=== PATIENT | male | born 1945 | race Caucasian/White ===

== ENCOUNTER 2017-07-23 21:00 | Emergency (ER) | payer MEDICARE, OTHER ==
[2017-07-23 21:29] LABS: BILIRUBIN,URINE NEGATIVE (NEGATIVE)
[2017-07-23] MEDS ORDERED: SODIUM CHLORIDE 0.9% 1,000 ML IV ONE (21:37)
[2017-07-23 21:44] LABS: UA w/ MICROSCOPIC CHARGE YES; UR CULTURE IF IND INDICATED; WBC,URINE >25 /HPF (0-3)
[2017-07-23 21:52] LABS: BASOPHILS # (AUTO) 0.1 10^3/uL (0.0-0.1); BASOPHILS % (AUTO) 0.6 %; EOSINOPHILS # (AUTO) 0.1 10^3/uL (0.0-0.7); EOSINOPHILS % (AUTO) 0.7 %; HCT - HEMATOCRIT 46.4 % (42.0-52.0); HGB - HEMOGLOBIN 15.3 g/dL (14.0-18.0); LYMPHOCYTES # (AUTO) 0.6 10^3/uL (1.5-3.5); LYMPHOCYTES % (AUTO) 3.5 %; MEAN CORPUSCULAR HEMOGLOBIN 28.9 pg (27.0-31.0); MEAN CORPUSCULAR HGB CONC 33.1 g/dL (32.0-36.0); MEAN CORPUSCULAR VOLUME 87.2 fL (80.0-94.0); MEAN PLATELET VOLUME 7.4 fL (7.4-11.4); MONOCYTES % (AUTO) 5.9 %; NEUTROPHILS # (AUTO) 14.6 10^3/uL (1.5-6.6); NEUTROPHILS % (AUTO) 89.3 %; NUCLEATED RED BLOOD CELLS AUTO 0.1 /100WBC; RED BLOOD COUNT 5.32 10^6/uL (4.70-6.10); RED CELL DISTRIBUTION WIDTH 14.3 % (12.0-15.0); UNCORRECTED WHITE BLOOD COUNT 16.3 x10^3/uL; WHITE BLOOD COUNT 16.3 x10^3/uL (4.8-10.8)
[2017-07-23] MEDS ORDERED: ONDANSETRON 4 MG/2 ML VIAL IVP STA (22:02)
[2017-07-23 22:03] LABS: ALBUMIN/GLOBULIN RATIO 1.5 (1.0-2.2); BILIRUBIN,TOTAL 0.8 mg/dL (0.2-1.0); CALCIUM 9.1 mg/dL (8.5-10.3); CREATININE 1.7 mg/dL (0.6-1.2); POTASSIUM 3.8 mmol/L (3.5-5.0); TOTAL PROTEIN 7.2 g/dL (6.7-8.2)
[2017-07-23] MEDS ORDERED: SULFAMETH/TRIMETH DS 800/160 MG TABLET PO STA (22:04)
[2017-07-23] MEDS ORDERED: SULFAMETH/TRIMETH DS 800/160 MG TABLET PO ONE (22:17)
[2017-07-23] MEDS ORDERED: ONDANSETRON 4 MG/2 ML VIAL ONE ×2 (22:17→22:18)
[2017-07-23] MEDS ORDERED: ONDANSETRON ODT 4 MG Prepack 2 TL PRN (23:01)
--- NOTE | 2017-07-23 23:04 | ED Physician Documentation ---
PD HPI MALE - Stated complaint Stated Complaint: MALE - Chief complaint Chief Complaint: Abd Pain - History obtained from History obtained from: Patient (pt states that earlier today he started to have burning with urination. he then states that he woke from a nap at approx 1600 and had worsening symptoms, chills, some nausea but no vomiting, no fevers, no bowel sx, no back pain. states that he had a UTi approx 3 years ago, no other sx.) Review of Systems Constitutional: reports: Chills, Fatigue. denies: Fever Cardiac: denies: Chest pain / pressure, Palpitations Respiratory: denies: Dyspnea, Cough GI: reports: Nausea. denies: Abdominal Pain, Vomiting, Constipation, Diarrhea : reports: Dysuria, Frequency. denies: Unable to Void, Incontinent, Hematuria , Discharge Skin: denies: Rash, Lesions Musculoskeletal: denies: Back pain, Joint pain Neurologic: denies: Headache, LOC PD PAST MEDICAL HISTORY - Past Medical History Past Medical History: Yes Cardiovascular: Hypertension, High cholesterol, Coronary artery disease, [place] Respiratory: Asthma, Sleep apnea, CPAP use Neuro: Dementia, Tremors Endocrine/Autoimmune: Type 2 diabetes GI: Chronic diarrhea, Chronic constipation, Other : Benign prostate hypertrophy, Retention HEENT: Glaucoma, Chronic hearing loss, Dental implants Psych: Depression Musculoskeletal: Fibromyalgia, Gout, Chronic back pain Derm: Other - Past Surgical History General: Colonoscopy Cardiovascular: Coronary stent, Cardiac catheterization HEENT: Cataracts, Detached retina repair Derm: Skin cancer surgery - Present Medications Home Medications: Ambulatory Orders Medication Instructions Recorded Confirmed Phenazopyridine [Pyridium] 100 mg PO TID #6 tablet 07/23/17 Sulfamethox/Trimeth 800/160 1 each PO BID #6 tablet 07/23/17 [Bactrim Ds 800/160] - Allergies Allergies/Adverse Reactions: Allergies Allergy/AdvReac Type Severity Reaction Status Date / Time Penicillins Allergy Rash Verified 07/23/17 21:18 - Social History Does the pt smoke?: No Smoking Status: Former smoker Does the pt drink ETOH?: Yes Substance Use and Type: Marijuana PD ED PE NORMAL - Vitals Vital signs reviewed: Yes - General General: Alert and oriented X 3, No acute distress, Well developed/nourished - HEENT HEENT: Moist mucous membranes - Cardiac Cardiac: No murmur. No: RRR (tachycardic but regular) - Respiratory Respiratory: No respiratory distress - Abdomen Abdomen: Normal bowel sounds, Soft, Non tender, Non distended - Back Back: No CVA TTP - Derm Derm: Normal color, No rash - Extremities Extremities: No edema, No calf tenderness / cord - Neuro Neuro: Alert and oriented X 3, Normal speech Eye Opening: Spontaneous Motor: Obeys Commands Verbal: Oriented GCS Score: 15 - Psych Psych: Normal mood, Normal affect Results - Vitals Vitals: Vital Signs - 24 hr 07/23/17 21:18 Temperature 36.9 C Heart Rate 124 H Respiratory 18 Rate Blood Pressure 135/85 H O2 Saturation 98 Oxygen O2 Source Room air - Labs Labs: Laboratory Tests 07/23/17 07/23/17 07/23/17 21:25 21:30 21:30 WBC 16.3 H RBC 5.32 Hgb 15.3 Hct 46.4 MCV 87.2 MCH 28.9 MCHC 33.1 RDW 14.3 Plt Count 220 MPV 7.4 Neut # 14.6 H Lymph # 0.6 L [place] # 1.0 Eos # 0.1 Baso # 0.1 Absolute Nucleated RBC 0.02 Nucleated RBC % 0.1 Sodium 137 Potassium 3.8 Chloride 101 Carbon Dioxide 22 Anion Gap 14.0 H BUN 29 H Creatinine 1.7 H Estimated GFR (MDRD) 40 L Glucose 181 H Calcium 9.1 Total Bilirubin 0.8 AST 22 ALT 22 Alkaline Phosphatase 73 Total Protein 7.2 Albumin 4.3 Globulin 2.9 Albumin/Globulin Ratio 1.5 Lipase 33 Urine Color YELLOW Urine Clarity HAZY Urine pH 6.0 Ur Specific Orient 1.020 Urine Protein NEGATIVE Urine Glucose (UA) NEGATIVE Urine Ketones NEGATIVE Urine Occult Blood MODERATE H Urine Nitrite NEGATIVE Urine Bilirubin NEGATIVE Urine Urobilinogen 0.2 (NORMAL) Ur Leukocyte Esterase MODERATE H Urine RBC TNTC H Urine WBC >25 H Ur Squamous Epith Cells NONE SEEN Urine Bacteria Moderate H Ur Microscopic Review INDICATED Urine Culture Comments INDICATED PD MEDICAL DECISION MAKING - ED course Complexity details: d/w patient ED course: pt with UA and sx that are C/W a UTI. He is tachycardic and has elevated WBC count from the UTI but not hypotensive. Pt given fluids in the ER and tolerated PO ABX after zofran. He states that he started to feel better after the fluids. He has a non-surgical ABD on my exam. Has no CVA pain so pyelo is less likely. he was given bactrim because he is allergic to PCN and cipro. 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 we was given a pre-pack of zofran from the ER to cover him for this evening. he was given return precautions. and expressed agreement with going home. Departure - Departure Disposition: 01 Home, Self Care Clinical Impression: UTI (urinary tract infection) Condition: Good Instructions: ED UTI Cystitis Male Follow-Up: DIONNE GARCIA [Primary Care Provider] - Prescriptions: Phenazopyridine [Pyridium] 100 mg PO TID #6 tablet Sulfamethox/Trimeth 800/160 [Bactrim Ds 800/160] 1 each PO BID #6 tablet Comments: take the medications as directed. Follow up with your primary care provider. Fill your Rx tomorrow morning. Return to the ER for any new symptoms, worsening symptoms, inability to tolerate your medications or any other concerning symptoms.
[2017-07-23] MEDS ORDERED: ONDANSETRON ODT 4 MG Prepack 2 TL ONE (23:20)
[2017-07-23] MEDS ORDERED: ACETAMINOPHEN 500 MG TABLET PO STA (23:52)
[2017-07-23] MEDS ORDERED: ACETAMINOPHEN 500 MG TABLET PO ONE (23:59)
[2017-07-24 00:39] VITALS: BP 118/78
== END 2017-07-24 00:54 | disposition home or self-care (01) ==
LOC: ED 21:00
DX: N39.0 Urinary tract infection, site not specified (principal); I10 Essential (primary) hypertension; I25.10 Atherosclerotic heart disease of native coronary artery without angina pectoris; I25.2 Old myocardial infarction; J45.909 Unspecified asthma, uncomplicated; E78.00 Pure hypercholesterolemia, unspecified; G47.30 Sleep apnea, unspecified; F03.90 Unspecified dementia, unspecified severity, without behavioral disturbance, psychotic disturbance, mood disturbance, and anxiety; E11.9 Type 2 diabetes mellitus without complications; N40.0 Benign prostatic hyperplasia without lower urinary tract symptoms; M79.7 Fibromyalgia; M10.9 Gout, unspecified; Z87.891 Personal history of nicotine dependence
CPT/HCPCS: 36415; 80053; 81001; 83690; 85025; 87077; 87086; 87181; 96361; 96374; 99283; A9270; 81003

== ENCOUNTER 2017-07-24 03:19 | Outpatient (CLI) | payer MEDICARE, OTHER | END 2017-07-24 03:20 | disposition critical access hospital (66) | LOC: EMS 03:19 | PROVIDERS: ATTEND Surgery | DX: R11.11 Vomiting without nausea (principal) | CPT/HCPCS: A0425; A0427 ==

== ENCOUNTER 2017-07-24 03:47 | Inpatient (IN) | payer MEDICARE, OTHER ==
[2017-07-24] MEDS ORDERED: ONDANSETRON 4 MG/2 ML VIAL IVP STA (03:52)
[2017-07-24] MEDS ORDERED: SODIUM CHLORIDE 0.9% 1,000 ML IV ONE (03:52)
[2017-07-24] MEDS ORDERED: ONDANSETRON 4 MG/2 ML VIAL ONE (04:04)
--- NOTE | 2017-07-24 04:23 | XRAY Preliminary Report ---
Exam: XR CHEST 1 VIEW IMPRESSION: 1. No acute abnormality seen in the chest. [facility] SITE ID: [id number]
--- NOTE | 2017-07-24 04:26 | XRAY Report ---
EXAM: CHEST RADIOGRAPHY EXAM DATE: 07/24/2017 04:18 AM. CLINICAL HISTORY: Hypoxia. COMPARISON: None. TECHNIQUE: 1 view. FINDINGS: Lungs/Pleura: No alveolar consolidation or pleural effusion seen. No pneumothorax. Mediastinum: Lordotic position. Within exam limitations, the cardiomediastinal contour is normal. Other: None. IMPRESSION: 1. No acute abnormality seen in the chest. [facility] Referring Provider Line: [phone] SITE ID: [id number]
[2017-07-24 04:31] LABS: BASOPHILS % (AUTO) 0.4 %; EOSINOPHILS % (AUTO) 0.1 %; HCT - HEMATOCRIT 40.6 % (42.0-52.0); HGB - HEMOGLOBIN 13.7 g/dL (14.0-18.0); LYMPHOCYTES # (AUTO) 0.1 10^3/uL (1.5-3.5); MEAN CORPUSCULAR HEMOGLOBIN 29.7 pg (27.0-31.0); MEAN CORPUSCULAR HGB CONC 33.7 g/dL (32.0-36.0); MEAN CORPUSCULAR VOLUME 88.1 fL (80.0-94.0); MEAN PLATELET VOLUME 7.3 fL (7.4-11.4); MONOCYTES # (AUTO) 0.1 10^3/uL (0.0-1.0); MONOCYTES % (AUTO) 1.4 %; NEUTROPHILS % (AUTO) 97.1 %; UNCORRECTED WHITE BLOOD COUNT 9.3 x10^3/uL; WHITE BLOOD COUNT 9.3 x10^3/uL (4.8-10.8)
[2017-07-24 04:42] LABS: ALBUMIN/GLOBULIN RATIO 1.5 (1.0-2.2); BILIRUBIN,TOTAL 0.7 mg/dL (0.2-1.0); CREATININE 1.7 mg/dL (0.6-1.2); TOTAL PROTEIN 5.7 g/dL (6.7-8.2)
[2017-07-24] MEDS ORDERED: cefTRIAXone 2 GM in SODIUM CHLORIDE 0.9% MINIBAG 100 ML IV STA (04:51)
[2017-07-24] MEDS ORDERED: POTASSIUM CHLOR 10 MEQ/100 ML 10 MEQ/100 ML BAG IV ONE ×2 (04:51→05:33)
[2017-07-24] MEDS ORDERED: POTASSIUM CHLORIDE 20 MEQ TABLET PO STA (04:51)
--- NOTE | 2017-07-24 04:53 | ED Physician Documentation ---
History of Present Illness - Stated complaint Stated Complaint: N/V/DIAPHORETIC - Chief complaint Chief Complaint: General - History obtained from History obtained from: Patient, Family, EMS - Additonal information Additional information: Patient is a 71 year old male with a history of diabetes who is coming to the emergency department for fevers and chills. patient was seen in the emergency department earlier tonight where he was diagnosed with a urinary tract infection. patient went home, but while there developed rigors, sweats and altered menta status so the family called ems. Upon arrival to the emergency department patient was awake, alert but was tachycardic. Review of Systems Constitutional: reports: Fever, Chills, Sweats Eyes: denies: Decreased vision, Photophobia Ears: reports: Reviewed and negative Nose: reports: Reviewed and negative Throat: reports: Reviewed and negative Cardiac: reports: Reviewed and negative. denies: Chest pain / pressure, Palpitations Respiratory: denies: Cough, Wheezing GI: reports: Nausea. denies: Vomiting, Constipation : reports: Dysuria Skin: denies: Rash, Lesions Musculoskeletal: reports: Reviewed and negative Neurologic: reports: Altered mental status PD PAST MEDICAL HISTORY - Past Medical History Past Medical History: Yes Cardiovascular: Hypertension, High cholesterol, Coronary artery disease, [place] Respiratory: Asthma, Sleep apnea, CPAP use Neuro: Dementia, Tremors Endocrine/Autoimmune: Type 2 diabetes GI: Chronic diarrhea, Chronic constipation, Other : Benign prostate hypertrophy, Retention HEENT: Glaucoma, Chronic hearing loss, Dental implants Psych: Depression Musculoskeletal: Fibromyalgia, Gout, Chronic back pain Derm: Other - Past Surgical History Past Surgical History: Yes General: Colonoscopy Cardiovascular: Coronary stent, Cardiac catheterization HEENT: Cataracts, Detached retina repair Derm: Skin cancer surgery - Present Medications Home Medications: Ambulatory Orders Medication Instructions Recorded Confirmed Phenazopyridine [Pyridium] 100 mg PO TID #6 tablet 07/23/17 Sulfamethox/Trimeth 800/160 1 each PO BID #6 tablet 07/23/17 [Bactrim Ds 800/160] - Allergies Allergies/Adverse Reactions: Allergies Allergy/AdvReac Type Severity Reaction Status Date / Time Penicillins Allergy Rash Verified 07/23/17 21:18 - Social History Does the pt smoke?: No Smoking Status: Never smoker Does the pt drink ETOH?: Yes Does the pt have substance abuse?: No Substance Use and Type: Marijuana PD ED PE NORMAL - Vitals Vital signs reviewed: Yes - General General: Alert and oriented X 3, No acute distress - HEENT HEENT: Atraumatic, PERRL - Neck Neck: Supple, no meningeal sign, No JVD - Respiratory Respiratory: No respiratory distress, Clear bilaterally - Abdomen Abdomen: Soft, Non distended - Extremities Extremities: No deformity, No edema - Neuro Neuro: Alert and oriented X 3, No motor deficit, No sensory deficit, Normal speech Eye Opening: Spontaneous Motor: Obeys Commands Verbal: Oriented GCS Score: 15 - Psych Psych: Normal mood PD ED PE EXPANDED - General General: Alert, Well developed/nourished - Cardiac Cardiac: Tachy - Derm Derm: Diaphoretic Results - Vitals Vitals: Vital Signs - 24 hr 07/24/17 07/24/17 03:53 04:40 Temperature 37 C Heart Rate 120 H 114 H Respiratory 23 20 Rate Blood Pressure 107/62 91/58 L O2 Saturation 95 92 Oxygen O2 Source Room air - Labs Labs: Laboratory Tests 07/24/17 07/24/17 07/24/17 04:21 04:21 04:21 WBC 9.3 RBC 4.60 L Hgb 13.7 L Hct 40.6 L MCV 88.1 MCH 29.7 MCHC 33.7 RDW 14.0 Plt Count 146 MPV 7.3 L Neut # 9.0 H Lymph # 0.1 L [place] # 0.1 Eos # 0.0 Baso # 0.0 Absolute Nucleated RBC 0.00 Nucleated RBC % 0.0 Sodium 137 Potassium 3.0 L Chloride 106 Carbon Dioxide 17 L Anion Gap 14.0 H BUN 28 H Creatinine 1.7 H Estimated GFR (MDRD) 40 L Glucose 209 H Lactic Acid 3.5 H* Calcium 8.0 L Magnesium Total Bilirubin 0.7 AST 25 ALT 18 Alkaline Phosphatase 59 Troponin I Total Protein 5.7 L Albumin 3.4 Globulin 2.3 Albumin/Globulin Ratio 1.5 Lipase 21 L 07/24/17 07/24/17 04:21 04:21 WBC RBC Hgb Hct MCV MCH MCHC RDW Plt Count MPV Neut # Lymph # [place] # Eos # Baso # Absolute Nucleated RBC Nucleated RBC % Sodium Potassium Chloride Carbon Dioxide Anion Gap BUN Creatinine Estimated GFR (MDRD) Glucose Lactic Acid Calcium Magnesium 1.4 L Total Bilirubin AST ALT Alkaline Phosphatase Troponin I < 0.04 Total Protein Albumin Globulin Albumin/Globulin Ratio Lipase Procedures - Central Line Central Line Preparation: Consent Obtained, Time out completed, Ultrasound used , Sterile prep and drape Central line location: Right IJ Central line type: Triple lumen Central line aftercare: Chlorhexidine disc placed, Secured, Placement confirmed , No pneumothorax, No complications, Pt tolerated well PD MEDICAL DECISION MAKING - ED course Complexity details: reviewed old records, reviewed results, re-evaluated patient , considered differential, d/w patient, d/w family, d/w financial analysis consultant ED course: Patient was seen and examined at bedside. IV access was gained and labs were drawn. fluid bolus was started. Patient was found to have a decrease in his leukocytosis but did have a lactic acidosis. blood cultures were drawn and a second liter of fluid was ordered. patient remained moderately hypotensive with maps in the 50s. Case was discussed with the hospitalist who requested a central line and admission to the icu. patient was treated with rocephin, potassium and a central line was placed. Patient's blood pressures improved and patient was admitted to the icu in stable condition. - Critical Care Time(min): 30 Time Includes: Direct patient care, Coordinate care Data interpretation: Labs, CXR, Cardiac output Departure - Departure Disposition: 66 [facility] DC/Xfer Clinical Impression: UTI (urinary tract infection) Qualifiers: Urinary tract infection type: site unspecified Hematuria presence: without hematuria Qualified Code(s): N39.0 - Urinary tract infection, site not specified Sepsis Qualifiers: Sepsis type: sepsis due to unspecified organism Qualified Code(s): A41.9 - Sepsis, unspecified organism Condition: Stable
[2017-07-24] MEDS ORDERED: ALBUTEROL NEB 2.5 MG/3 ML INH PRN (04:57)
[2017-07-24] MEDS ORDERED: SODIUM CHLORIDE 0.9% 500 ML IV PRN (04:57)
[2017-07-24] MEDS ORDERED: ONDANSETRON ODT 4 MG TABLET TL PRN (04:57)
[2017-07-24] MEDS ORDERED: SODIUM CHLORIDE FLUSH 0.9% 10 ML SYRINGE IVP PRN (04:57)
--- NOTE | 2017-07-24 05:19 | HISTORY & PHYSICAL EXAMINATION ---
Chief Complaint - Chief Complaint Chief Complaint: SOB, confusion, nausea with emesis x2, dysuria History of Present Illness - Admitted From Admitted From:: ED - History Obtained From Records Reviewed: yes History obtained from: patient Exam Limitations: mild dementia - History of Present Illness HPI Comment/Other: This a pleasantly demented 71 y/o with multiple medical conditions per below who had previously been in ED for UTI and given bactrim and released home; he now c/o feelings chills, fevers, weakness, dysuria and had 2 bouts of NB/NB emesis. Patient was afebrile, tachy 120's wit low BP's with a sbp between 92- 107 after receiving 3 liters of NS. Patient is an uncontrolled diabetic with CKD and unknown baseline creatinine. CXR was negative along with a trop neg, LA was high at 3.5, glu 181, cr 1.7. Patient does not seem to appear toxic or ill- appearing, slightly tachypneic. Past Medical History Past Medical History: Yes Cardiovascular: Hypertension, High cholesterol, Coronary artery disease, [place] Respiratory: Asthma, Sleep apnea, CPAP use Neuro: Dementia, Tremors Endocrine/Autoimmune: Type 2 diabetes GI: Chronic diarrhea, Chronic constipation, Other : Benign prostate hypertrophy, Retention HEENT: Glaucoma, Chronic hearing loss, Dental implants Psych: Depression Musculoskeletal: Fibromyalgia, Gout, Chronic back pain Derm: Other - Past Surgical History Past Surgical History: Yes General: Colonoscopy Cardiovascular: Coronary stent, Cardiac catheterization HEENT: Cataracts, Detached retina repair Derm: Skin cancer surgery History - Past Medical History Cardiovascular: reports: Hypertension, High cholesterol, Coronary artery disease , [place] Respiratory: reports: Asthma, Sleep apnea, CPAP use Neuro: reports: Dementia, Tremors Endocrine/Autoimmune: reports: Type 2 diabetes GI: reports: Chronic diarrhea, Chronic constipation, Other : reports: Benign prostate hypertrophy, Retention HEENT: reports: Glaucoma, Chronic hearing loss, Dental implants Psych: reports: Depression Musculoskeletal: reports: Fibromyalgia, Gout, Chronic back pain Derm: reports: Other MRSA Hx?: No - Past Surgical History General: reports: Colonoscopy Cardiovascular: reports: Coronary stent, Cardiac catheterization HEENT: reports: Cataracts, Detached retina repair Derm: reports: Skin cancer surgery - POLST POLST Status: Full Code Meds/Allgy - Home Medications Home Medications: Ambulatory Orders Medication Instructions Recorded Confirmed Phenazopyridine [Pyridium] 100 mg PO TID #6 tablet 07/23/17 Sulfamethox/Trimeth 800/160 1 each PO BID #6 tablet 07/23/17 [Bactrim Ds 800/160] - Allergies Allergies/Adverse Reactions: Allergies Allergy/AdvReac Type Severity Reaction Status Date / Time Penicillins Allergy Rash Verified 07/23/17 21:18 Review of Systems - Constitutional Constitutional: reports: Fatigue, Fever, Chills, Malaise, Weakness, Poor appetite, Night sweats - Eyes Eyes: denies: Blurred vision - Ears, Nose & Throat Ears, Nose & Throat: denies: Vertigo - Cardiovascular Cariovascular: reports: Palpitations, Lightheadedness. denies: Chest pain, Edema, Syncope, Exertional dyspnea - Respiratory Respiratory: reports: SOB with exertion. denies: Cough, Sputum production, Wheezing, Hemoptysis - Gastrointestinal Gastrointestinal: denies: Abdominal pain, Abdominal distention - Genitourinary Genitourinary: reports: Dysuria, Frequency, Urgency. denies: Hematuria, Urethral discharge - Musculoskeletal Musculoskeletal: reports: Muscle pain, Back pain, Muscle aches. denies: Stiffness, Muscle weakness, Gout, Joint swelling - Integumentary Integumentary: denies: Rash - Neurological Neurological: reports: General weakness, Dizziness, Memory problems. denies: Numbness, Seizures, Slurred speech - Psychiatric Psychiatric: denies: Depression, Anxiety, Suicidal - Endocrine Endocrine: reports: Polyuria. denies: Intolerance to cold - Hematologic/Lymphatic Hematologic/Lymphatic: denies: Anemia, Bruising, Petechiae - All Other Systems All Other Systems: reports: Reviewed and negative Exam - Vital Signs Vital Signs: Vital Signs x48h Temp Pulse Resp BP Pulse Ox 07/24/17 05:13 109 H 20 88/43 L 92 07/24/17 04:40 114 H 20 91/58 L 92 07/24/17 03:53 37 C 120 H 23 107/62 95 - Physical Exam General Appearance: positive: Mild distress, Other (confusion.) Eyes Bilateral: positive: Normal inspection, PERRL, EOMI ENT: positive: ENT inspection nml, Dry mucous membranes. negative: Oral lesions Neck: positive: Nml inspection, Thyroid nml, No JVD, Trachea midline. negative : Thyromegaly, Swelling/bruising Respiratory: positive: Chest non-tender, Breath sounds nml. negative: Wheezes, Rales, Rhonchi Cardiovascular: positive: Regular rate & rhythm, No murmur, No gallop. negative : Irregularly irregular, JVD present, Gallop/S4 Peripheral Pulses: positive: 2+ Abdomen: positive: Tenderness (epigastrium). negative: No organomegaly, Hepatomegaly, Splenomegaly, Abnml bowel sounds Back: positive: CVA tenderness (R), CVA tenderness (L) (mild) Skin: positive: Color nml, No rash, Dry. negative: Pallor, Decubitus Extremities: positive: Non-tender, Full ROM, No pedal edema Neurologic/Psychiatric: positive: CN's nml (2-12). negative: Slurred/abnml speech (not oriented to place) Conclusion/Plan - Problem List (1) Sepsis Conclusion/Plan: Will initiate early goal directed tx with IV rocephin, IVF boluses along with starting Levophed to maintain MAP>65 since patient has been refractory to 3 liter boluses with continued hypotension sbp 90-100's, tachy 110-120. LA elevated 3.5, would cycle LA levels, follow Urine and blood cultures as patient likely has GNR bactermia? CVP line to be placed in ED, lytes to correct. Glucose to goal 140-180 per sepsi guidelines. Qualifiers: Sepsis type: sepsis due to unspecified organism Qualified Code(s): A41.9 - Sepsis, unspecified organism (2) Lactic acidosis Conclusion/Plan: LA daily, sepsis management to tx underlying cause; early goal directed tx. (3) UTI (urinary tract infection) Conclusion/Plan: Rocephin empirically until UCx returns with sensitivities. If ESBL Positive may start a carbapenem. Qualifiers: Urinary tract infection type: site unspecified Hematuria presence: without hematuria Qualified Code(s): N39.0 - Urinary tract infection, site not specified (4) Diabetes mellitus type 2, uncontrolled Conclusion/Plan: start ISS high dose along with glycemic control with bolus and basal coverage to maintain goal between 140-180 in sepsis Qualifiers: Diabetes mellitus complication status: with kidney complications Diabetes mellitus skilled nursing insulin use: unspecified termite helper insulin use status Chronic kidney disease stage: unspecified stage (5) Hx of coronary artery disease Conclusion/Plan: Reconcile home meds and resume, asa daily, statin, hold home bp meds due to sepsis R/T UTI. NTG prn (6) Weakness Conclusion/Plan: Address underlying etiologies. PT/OT. (8) Dementia Conclusion/Plan: Avoid sedative agents, consider starting namenda to improve cognition. Qualifiers: Dementia type: unspecified type - Lab Results Fish Bones: 07/24/17 04:21 07/24/17 04:21 - Diagnostic Imaging Results Diagnostic Imaging Results: positive: Final report reviewed - EKG Results EKG Interpreted Independently: Yes Issues/Core Measures - Anticipated LOS Anticipated Stay Length: 2 or more midnights - DVT/VTE - Prophylaxis VTE/DVT Device ordered at admit?: Yes VTE/DVT Prophylaxis med ordered at admit?: Yes - Stroke - Rehab Assessment Rehab services assessment to be ordered?: No - AMI - Statin at Admit Aspirin Prescribed on Admit: No
[2017-07-24] MEDS ORDERED: SODIUM CHLORIDE 0.9% 500 ML IV ONE (05:31)
--- NOTE | 2017-07-24 07:20 | XRAY Preliminary Report ---
Exam: XR CHEST 1 VIEW IMPRESSION: 1. Right IJ catheter with the tip in the mid-upper SVC. [facility] SITE ID: [id number]
--- NOTE | 2017-07-24 07:23 | XRAY Report ---
EXAM: CHEST RADIOGRAPHY EXAM DATE: 07/24/2017 06:59 AM. CLINICAL HISTORY: CL placement. COMPARISON: 07/24/2017. TECHNIQUE: 1 view. FINDINGS: Lungs/Pleura: Right and left costophrenic angles were not included. Interstitial prominence. Mediastinum: Within exam limitations, the cardiomediastinal contour is normal. Other: Right IJ catheter with the tip in the mid-upper SVC. IMPRESSION: 1. Right IJ catheter with the tip in the mid-upper SVC. DEWAYNE Referring Provider Line: [phone] SITE ID: [id number]
[2017-07-24 08:21] LABS: HEMOGLOBIN A1C 0.7 g/dL
[2017-07-24] MEDS: FAMOTIDINE 20 MG/50 ML 50 ML IV SCH ×2 (08:28→17:33)
[2017-07-24] MEDS: INSULIN ASPART 300 UNIT/3 ML PEN SUBQ SCH ×4 (08:34→20:58)
[2017-07-24] MEDS: SODIUM CHLORIDE FLUSH 0.9% 10 ML SYRINGE IVP SCH ×3 (08:37→20:59)
[2017-07-24] MEDS ORDERED: MAGNESIUM SULFATE 2 GRAM 2 GM/50 ML BAG IV SCH (09:00)
[2017-07-24] MEDS: POTASSIUM CHLOR 20 MEQ/100 ML 20 MEQ/100 ML BAG IV SCH ×2 (10:33→11:35)
[2017-07-24] MEDS: HEPARIN 5,000 UNIT/ML VIAL SUBQ SCH ×2 (10:45→20:55)
[2017-07-24] MEDS ORDERED: NS W/20 MEQ KCL 1,000 ML IV SCH ×2 (13:00→20:39)
[2017-07-24] MEDS: ACETAMINOPHEN 500 MG TABLET PO PRN (20:03)
[2017-07-24] MEDS: ALLOPURINOL 100 MG TABLET PO SCH (20:03)
--- NOTE | 2017-07-24 21:36 | PROVIDER PROGRESS NOTE ---
It Assistant Note - It Assistant Note It Assistant Note: I was called about a positive urine culture with ESBL+ E.coli with resistance to quinolones but sensitive to cephalosporins and carbepenams (i.e. primaxin, ivanz). Would resume rocephin as this would be cost effective. There is however the same likely organism growing in blood; gram negative bacilli bacteremia that patient would warrant a PICC line to deliver rocephin daily. Repeat blood cultures usually not needed.
[2017-07-25] MEDS: ACETAMINOPHEN 500 MG TABLET PO PRN (00:57)
[2017-07-25] MEDS: SODIUM CHLORIDE FLUSH 0.9% 10 ML SYRINGE IVP SCH ×4 (05:40→22:15)
[2017-07-25] MEDS: FAMOTIDINE 20 MG/50 ML 50 ML IV SCH ×2 (05:40→17:40)
[2017-07-25 06:07] LABS: BASOPHILS % (AUTO) 0.2 %; EOSINOPHILS % (AUTO) 0.1 %; HCT - HEMATOCRIT 38.1 % (42.0-52.0); HGB - HEMOGLOBIN 12.5 g/dL (14.0-18.0); LYMPHOCYTES # (AUTO) 0.3 10^3/uL (1.5-3.5); LYMPHOCYTES % (AUTO) 2.2 %; MEAN CORPUSCULAR HEMOGLOBIN 29.4 pg (27.0-31.0); MEAN CORPUSCULAR HGB CONC 32.7 g/dL (32.0-36.0); MEAN CORPUSCULAR VOLUME 89.7 fL (80.0-94.0); MONOCYTES # (AUTO) 0.5 10^3/uL (0.0-1.0); MONOCYTES % (AUTO) 3.8 %; NEUTROPHILS # (AUTO) 13.1 10^3/uL (1.5-6.6); NEUTROPHILS % (AUTO) 93.7 %; RED BLOOD COUNT 4.24 10^6/uL (4.70-6.10); RED CELL DISTRIBUTION WIDTH 14.8 % (12.0-15.0)
[2017-07-25 06:13] LABS: CALCIUM 7.7 mg/dL (8.5-10.3); CREATININE 1.8 mg/dL (0.6-1.2); MAGNESIUM 2.1 mg/dL (1.7-2.8); PHOSPHORUS 2.7 mg/dL (2.5-4.6); POTASSIUM 4.1 mmol/L (3.5-5.0)
[2017-07-25] MEDS ORDERED: cefTRIAXone 1 GM in SODIUM CHLORIDE 0.9% MINIBAG 100 ML IV SCH ×2 (08:00)
[2017-07-25] MEDS: INSULIN ASPART 300 UNIT/3 ML PEN SUBQ SCH ×4 (08:14→20:28)
[2017-07-25] MEDS: NS W/20 MEQ KCL 1,000 ML IV SCH ×2 (08:18→20:24)
[2017-07-25] MEDS: ALLOPURINOL 100 MG TABLET PO SCH (09:05)
--- NOTE | 2017-07-25 09:19 | CT Preliminary Report ---
Exam: CT ABDOMEN/PELVIS W/O IMPRESSION: 1. Normal appendix. 2. Colonic diverticulosis. No diverticulitis . No bowel obstruction. Small to moderate volume of stoo l in the colon. 3. Mild edema of the posterior inferior retroperitoneum and pelvis, nonspecific. 4. Marked prostate gland enlargement. Mildly distended urinary bladder. Mildly thick-walled urinary b ladder. 5. No hydronephrosis. No nephrolithiasis . Bilateral renal low-attenuation lesions, indeterminate. [facility] SITE ID: [id number]
[2017-07-25] MEDS: ASPIRIN 325 MG TABLET PO SCH (09:25)
[2017-07-25] MEDS: HEPARIN 5,000 UNIT/ML VIAL SUBQ SCH ×2 (09:26→20:25)
[2017-07-25] MEDS: buPROPion XL 150 MG TABLET PO SCH (09:26)
--- NOTE | 2017-07-25 09:33 | CT Report ---
EXAM: CT ABDOMEN AND PELVIS EXAM DATE: 07/25/2017 09:00 AM. CLINICAL HISTORY: Urosepsis, evaluate for obstruction. COMPARISONS: None. TECHNIQUE: Routine helical CT imaging was performed through the abdomen and pelvis. IV contrast: None . Enteric contrast: No. Reconstructions: Coronal and sagittal. In accordance with CT protocol optimization, one or more of the following dose reduction techniques w ere utilized for this exam: automated exposure control, adjustment of mA and/or KV based on patient s ize, or use of iterative reconstructive technique. FINDINGS: Lung Bases: Interstitial changes in both lung bases. Septal thickening. Lower lobe bronchial dilatati on and bronchial thickening. Heart size normal. Small cardiac effusion. Small hiatal hernia. Coronary calcified plaque. Liver: Unenhanced images of the liver are unremarkable. Gallbladder/Bile Ducts: Unremarkable. Spleen: Normal. Pancreas: Normal. Adrenal Glands: Normal. Kidneys: Mild bilateral perinephric stranding. No hydronephrosis. No ureteral dilatation or ureteral calculi. Low-attenuation lesion arising from the lateral mid right kidney measuring 17 mm. Low-attenu ation lesion arising from the posterior mid left kidney measuring 12 mm and from the lower pole measu ring 14 mm, indeterminate. Peritoneal Cavity/Bowel: Stomach is mildly distended and unremarkable. Mild gaseous distention and fl uid-filled small bowel seen, without evidence for obstruction. No portal venous gas or pneumatosis. S mall to moderate volume stool is seen in the colon. Diverticula are seen, largely in the distal colon . No evidence of diverticulitis. No enlarged mesenteric lymph nodes. Normal appendix. Pelvic Organs: Urinary bladder is mildly distended and appears to be mildly thick-walled. Markedly en larged prostate gland measuring 7.5 cm in transverse dimension. Mild perirectal and presacral edema. No pelvic adenopathy. Vasculature: Atherosclerotic calcified plaque. No aneurysm. No para-aortic hematoma. Subcentimeter re troperitoneal lymph nodes. Bones: Degenerative changes of the lower thoracic and lumbar spine. Slight levoscoliosis of the lower lumbar spine. Lower lumbar spine. Lumbar facet arthropathy. No acute osseous abnormalities. Degenera tive changes of both hip joints. Other: Edema seen along the inferior posterior retroperitoneum bilaterally and extending into the pel vis. IMPRESSION: 1. Normal appendix. 2. Colonic diverticulosis. No diverticulitis. No bowel obstruction. Small to moderate volume of stool in the colon. 3. Mild edema of the posterior inferior retroperitoneum and pelvis, nonspecific. 4. Marked prostate gland enlargement. Thick-walled urinary bladder. 5. No hydronephrosis. No nephrolithiasis. Bilateral renal low-attenuation lesions, indeterminate. [facility] Referring Provider Line: [phone] SITE ID: [id number]
[2017-07-25] MEDS: ERTAPENEM 1 GM in SODIUM CHLORIDE 0.9% MINIBAG 100 ML IV SCH (13:53)
--- NOTE | 2017-07-25 18:45 | PROVIDER PROGRESS NOTE ---
Assessment/Plan - Problem List (1) Sepsis Assessment/Plan: Clinically improving on current meds and management. Continue iv antibiotics for a total of 10-14 days. (2) UTI (urinary tract infection) Qualifiers: Urinary tract infection type: acute pyelonephritis Qualified Code(s): N10 - Acute pyelonephritis Assessment/Plan: Pt has less frequent urination. Etiology is likely due to obstruction from BPH AND his diarrhea (only reported this today but he has had it for 1-2 weeks, after travel to [place]). Continue iv antibiotics and iv hydration. (3) Bacteremia due to Escherichia coli Assessment/Plan: Will change Ceftriaxone to Emipenam, per sensitivities from pos ESBL E coli cultures in urine and blood (4) BPH (benign prostatic hyperplasia) Assessment/Plan: Newly diagnosed by imaging today. Reported to patient. He will need a Urologist after DCh (5) CKD (chronic kidney disease) Assessment/Plan: Continue iov hydration and follow labs. (6) Diabetes mellitus type 2, uncontrolled Qualifiers: Diabetes mellitus complication status: with kidney complications Diabetes mellitus care home insulin use: unspecified care home insulin use status Chronic kidney disease stage: unspecified stage Assessment/Plan: Pt has adequate glu control on current meds and diet. - Current Meds Current Meds: Current Medications Generic Name Dose Route Start Last Admin Trade Name Freq PRN Reason Stop Dose Admin Acetaminophen 500 mg 07/24/17 18:23 07/25/17 00:57 Tylenol PO 500 mg Q4HR PRN Administration Pain or Fever > 38C (100.4F) Allopurinol 300 mg 07/24/17 18:00 07/25/17 09:05 Zyloprim PO 300 mg DAILY JOEY Administration Aspirin 325 mg 07/25/17 09:00 07/25/17 09:25 Omega PO 325 mg DAILY JOEY Administration Bupropion HCl 300 mg 07/25/17 09:00 07/25/17 09:26 Wellbutrin Xl PO 300 mg DAILY JOEY Administration Heparin Sodium (Porcine) 5,000 unit 07/24/17 09:00 07/25/17 09:26 SUBQ 5,000 unit BID JOEY Administration Famotidine 50 mls @ 100 mls/hr 07/24/17 05:00 07/25/17 18:30 Pepcid 20 Mg/50 Ml IV Infused Q12H JOEY Infusion Potassium Chloride/Sodium Chloride 1,000 mls @ 80 mls/hr 07/25/17 08:13 07/25 09:00 Normal Saline 0.9% W/20 Meq Kcl IV 60 mls/hr .[id number] JOEY Infusion Ertapenem 1 gm/ Sodium 100 mls @ 200 mls/hr 07/25/17 13:00 07/25/17 14:28 Chloride IV Infused DAILY JOEY Infusion Insulin Aspart 1 - 9 unit 07/24/17 08:00 07/25/17 17:40 Novolog SUBQ Not Given 0800,1200,1700,2100 [facility] Protocol Sodium Chloride 10 ml 07/24/17 06:00 07/25/17 14:45 Normal Saline Flush 0.9% IVP Not Given Q8HR JOEY - Lab Result Fish Bone Diagrams: 07/25/17 05:25 07/25/17 05:25 - Additional Planning My Orders: My Active Orders 07/24/17 18:00 Allopurinol [Zyloprim] 300 mg PO DAILY 07/24/17 18:23 Acetaminophen [Tylenol] 500 mg PO Q4HR PRN 07/25/17 08:13 Ns W/20 Meq KCl [Normal Saline 0.9% W/20 Meq KCl] 1,000 ml IV 80 mls/hr 07/25/17 09:00 Aspirin [Omega] 325 mg PO DAILY buPROPion [Wellbutrin Xl] 300 mg PO DAILY 07/25/17 10:20 CULTURE, STOOL [RM] Routine 07/25/17 13:00 Ertapenem [INVanz] 1 gm Sodium Chloride 0.9% Minibag [Normal Saline 0.9% Minibag] 100 ml IV DAILY 07/26/17 05:00 PHOSPHORUS [CHEM] DAILYLAB 07/26/17 09:00 Tamsulosin [Flomax] 0.8 mg PO DAILY Subjective - Subjective Patient Reports: Feeling Better, Other (Soft BMs and poor appetite, had diarrhea and N/V recently for several days after returned from [place] 1-2 week ago) Nursing Reports: Other (BM is like pudding) Objective Vital Signs: Vital Signs - 24 hr 07/24/17 07/24/17 07/24/17 19:00 20:00 21:00 Temperature 37.9 C H 37.0 C Heart Rate [ 107 H 110 H 94 Monitoring electrodes] Respiratory 32 H 28 H 27 H Rate Blood Pressure 132/62 H 137/51 H 113/48 L [Right Brachial artery] Blood Pressure [Right Radial artery] O2 Saturation 97 07/24/17 07/24/17 07/25/17 22:00 23:00 00:00 Temperature 37.1 C Heart Rate [ 99 96 106 H Monitoring electrodes] Respiratory 18 29 H 34 H Rate Blood Pressure 112/87 H 145/78 H 112/65 [Right Brachial artery] Blood Pressure [Right Radial artery] O2 Saturation 07/25/17 07/25/17 07/25/17 01:00 02:00 03:00 Temperature 38.4 C H Heart Rate [ 108 H 96 84 Monitoring electrodes] Respiratory 30 H 23 21 Rate Blood Pressure 120/75 107/55 L 99/56 L [Right Brachial artery] Blood Pressure [Right Radial artery] O2 Saturation 07/25/17 07/25/17 07/25/17 03:45 05:00 06:00 Temperature 36.7 C Heart Rate [ 88 94 100 Monitoring electrodes] Respiratory 22 24 20 Rate Blood Pressure 104/64 [Right Brachial artery] Blood Pressure 107/52 L 99/55 L [Right Radial artery] O2 Saturation 98 07/25/17 07/25/17 07/25/17 06:55 08:00 09:00 Temperature 37.2 C Heart Rate [ 96 100 100 Monitoring electrodes] Respiratory 28 H 31 H 28 H Rate Blood Pressure [Right Brachial artery] Blood Pressure 101/59 L 109/72 129/65 [Right Radial artery] O2 Saturation 95 07/25/17 14:17 Temperature 36.3 C L Heart Rate [ 100 Monitoring electrodes] Respiratory 28 H Rate Blood Pressure [Right Brachial artery] Blood Pressure 135/78 H [Right Radial artery] O2 Saturation 95 Oxygen O2 Source Room air I&O (Last 24 Hrs): Intake and Output Totals x24h 07/23/17 07/24/17 07/25/17 23:59 23:59 23:59 Intake Total 4253.750 1414.250 Output Total 720 785 Balance 3533.750 629.250 General: Alert, Oriented x3 HEENT: Atraumatic Neck: Supple Cardiovascular: Regular rate Respiratory: No respiratory distress Abdomen: Soft Extremities: No edema - Results Results: Laboratory Results WBC 14.0 x10^3/uL (4.8-10.8) H 07/25/17 05:25 RBC 4.24 10^6/uL (4.70-6.10) L 07/25/17 05:25 Hgb 12.5 g/dL (14.0-18.0) L 07/25/17 05:25 Hct 38.1 % (42.0-52.0) L 07/25/17 05:25 MCV 89.7 fL (80.0-94.0) 07/25/17 05:25 MCH 29.4 pg (27.0-31.0) 07/25/17 05:25 MCHC 32.7 g/dL (32.0-36.0) 07/25/17 05:25 RDW 14.8 % (12.0-15.0) 07/25/17 05:25 Plt Count 114 10^3/uL (130-450) L 07/25/17 05:25 MPV 8.0 fL (7.4-11.4) 07/25/17 05:25 Neut # 13.1 10^3/uL (1.5-6.6) H 07/25/17 05:25 Lymph # 0.3 10^3/uL (1.5-3.5) L 07/25/17 05:25 [place] # 0.5 10^3/uL (0.0-1.0) 07/25/17 05:25 Eos # 0.0 10^3/uL (0.0-0.7) 07/25/17 05:25 Baso # 0.0 10^3/uL (0.0-0.1) 07/25/17 05:25 Absolute Nucleated RBC 0.00 x10^3/uL 07/25/17 05:25 Nucleated RBC % 0.0 /100WBC 07/25/17 05:25 Sodium 135 mmol/L (135-145) 07/25/17 05:25 Potassium 4.1 mmol/L (3.5-5.0) 07/25/17 05:25 Chloride 109 mmol/L (101-111) 07/25/17 05:25 Carbon Dioxide 18 mmol/L (21-32) L 07/25/17 05:25 Anion Gap 8.0 (6-13) 07/25/17 05:25 BUN 25 mg/dL (6-20) H 07/25/17 05:25 Creatinine 1.8 mg/dL (0.6-1.2) H 07/25/17 05:25 Estimated GFR (MDRD) 37 (>89) L 07/25/17 05:25 Glucose 129 mg/dL (70-100) H 07/25/17 05:25 POC Whole Bld Glucose 112 mg/dL (70 - 100) H 07/25/17 16:38 Glycated Hemoglobin 6.5 % (4.6-6.2) H 07/24/17 04:21 Estim Average Glucose 140 (70-100) H 07/24/17 04:21 Lactic Acid < 0.3 mmol/L (0.5-2.2) L 07/24/17 06:58 Calcium 7.7 mg/dL (8.5-10.3) L 07/25/17 05:25 Phosphorus 2.7 mg/dL (2.5-4.6) 07/25/17 05:25 Magnesium 2.1 mg/dL (1.7-2.8) 07/25/17 05:25 Total Bilirubin 0.7 mg/dL (0.2-1.0) 07/24/17 04:21 AST 25 IU/L (10-42) 07/24/17 04:21 ALT 18 IU/L (10-60) 07/24/17 04:21 Alkaline Phosphatase 59 IU/L (42-121) 07/24/17 04:21 Troponin I < 0.04 ng/mL (<0.49) 07/24/17 04:21 Total Protein 5.7 g/dL (6.7-8.2) L 07/24/17 04:21 Albumin 3.4 g/dL (3.2-5.5) 07/24/17 04:21 Globulin 2.3 g/dL (2.1-4.2) 07/24/17 04:21 Albumin/Globulin Ratio 1.5 (1.0-2.2) 07/24/17 04:21 Lipase 21 U/L (22-51) L 07/24/17 04:21
[2017-07-26] MEDS: FAMOTIDINE 20 MG/50 ML 50 ML IV SCH ×2 (05:52→17:39)
[2017-07-26] MEDS: TAMSULOSIN 0.4 MG CAPSULE PO SCH (08:09)
[2017-07-26] MEDS: INSULIN ASPART 300 UNIT/3 ML PEN SUBQ SCH ×4 (08:13→22:17)
[2017-07-26] MEDS: PHENAZOPYRIDINE 100 MG TABLET PO PRN ×4 (08:40→21:28)
[2017-07-26] MEDS: ALLOPURINOL 100 MG TABLET PO SCH (09:15)
[2017-07-26] MEDS: buPROPion XL 150 MG TABLET PO SCH (09:16)
[2017-07-26] MEDS: ASPIRIN 325 MG TABLET PO SCH (09:16)
[2017-07-26] MEDS: ERTAPENEM 1 GM in SODIUM CHLORIDE 0.9% MINIBAG 100 ML IV SCH (09:16)
[2017-07-26] MEDS: HEPARIN 5,000 UNIT/ML VIAL SUBQ SCH ×2 (09:17→21:33)
[2017-07-26] MEDS: NS W/20 MEQ KCL 1,000 ML IV SCH ×2 (09:57→22:18)
--- NOTE | 2017-07-26 14:54 | XRAY Preliminary Report ---
Exam: XR CHEST 1 VIEW IMPRESSION: PICC line tip at mid SVC. [facility] SITE ID: [id number]
--- NOTE | 2017-07-26 14:56 | XRAY Report ---
EXAM: CHEST RADIOGRAPHY EXAM DATE: 07/26/2017 01:48 PM. CLINICAL HISTORY: PICC placement. COMPARISON: 07/24/2017. TECHNIQUE: 1 view. FINDINGS: Lungs/Pleura: No focal opacities evident. No pleural effusion. No pneumothorax. Mediastinum: There is a right upper extremity PICC line with tip at the mid SVC. The heart size is no rmal. Other: None. IMPRESSION: PICC line tip at mid SVC. [facility] Referring Provider Line: [phone] SITE ID: [id number]
[2017-07-26] MEDS: SODIUM CHLORIDE FLUSH 0.9% 10 ML SYRINGE IVP SCH ×2 (15:05→22:18)
--- NOTE | 2017-07-26 16:00 | PROVIDER PROGRESS NOTE ---
Assessment/Plan - Problem List (1) UTI (urinary tract infection) Qualifiers: Urinary tract infection type: acute pyelonephritis Qualified Code(s): N10 - Acute pyelonephritis Assessment/Plan: Continue current iv antibiotics for a 10-14 day course, due to ESBL Ecoli. A PICC line will be orderd and options offered as to daily iv infusion locations. I updated Pt and his at bedside today, all question answered to their satisfaction. (2) Bacteremia due to Escherichia coli Assessment/Plan: As above. (3) BPH (benign prostatic hyperplasia) Assessment/Plan: Continue Flomax. Pt will need Urology F/U after DCh (4) Travelers' diarrhea Assessment/Plan: All stool samples neg. Will treat symptomatically. (5) CKD (chronic kidney disease) Assessment/Plan: Continue iv fluids while poor appetite continues. Cheeck BUN/creat tomorrow. (6) Diabetes mellitus type 2, uncontrolled Qualifiers: Diabetes mellitus complication status: with kidney complications Diabetes mellitus intermodal dispatcher insulin use: unspecified snf insulin use status Chronic kidney disease stage: unspecified stage Assessment/Plan: Continue meds and diet. Follow fingersticks and has SS Insulin ordered. (7) Sepsis Assessment/Plan: Resolved. - Current Meds Current Meds: Current Medications Generic Name Dose Route Start Last Admin Trade Name Freq PRN Reason Stop Dose Admin Acetaminophen 500 mg 07/24/17 18:23 07/25/17 00:57 Tylenol PO 500 mg Q4HR PRN Administration Pain or Fever > 38C (100.4F) Allopurinol 300 mg 07/24/17 18:00 07/26/17 09:15 Zyloprim PO 300 mg DAILY JOEY Administration Aspirin 325 mg 07/25/17 09:00 07/26/17 09:16 Omega PO 325 mg DAILY JOEY Administration Bupropion HCl 300 mg 07/25/17 09:00 07/26/17 09:16 Wellbutrin Xl PO 300 mg DAILY JOEY Administration Heparin Sodium (Porcine) 5,000 unit 07/24/17 09:00 07/26/17 09:17 SUBQ 5,000 unit BID JOEY Administration Famotidine 50 mls @ 100 mls/hr 07/24/17 05:00 07/26/17 06:28 Pepcid 20 Mg/50 Ml IV Infused Q12H JOEY Infusion Potassium Chloride/Sodium Chloride 1,000 mls @ 80 mls/hr 07/25/17 08:13 07/26 09:57 Normal Saline 0.9% W/20 Meq Kcl IV 80 mls/hr .[id number] JOEY Administration Ertapenem 1 gm/ Sodium 100 mls @ 200 mls/hr 07/25/17 13:00 07/26/17 09:53 Chloride IV Infused DAILY JOEY Infusion Insulin Aspart 1 - 9 unit 07/24/17 08:00 07/26/17 14:41 Novolog SUBQ Not Given 0800,1200,1700,2100 [facility] Protocol Phenazopyridine HCl 100 mg 07/26/17 08:04 07/26/17 08:40 Pyridium PO 100 mg TID PRN Administration PAIN Sodium Chloride 10 ml 07/24/17 06:00 07/26/17 15:05 Normal Saline Flush 0.9% IVP 10 ml Q8HR JOEY Administration Tamsulosin HCl 0.8 mg 07/26/17 09:00 07/26/17 08:09 Flomax PO 0.8 mg DAILY JOEY Administration - Lab Result Fish Bone Diagrams: 07/25/17 05:25 07/25/17 05:25 - Additional Planning My Orders: My Active Orders 07/26/17 08:04 Phenazopyridine [Pyridium] 100 mg PO TID PRN 07/26/17 09:00 Tamsulosin [Flomax] 0.8 mg PO DAILY 07/26/17 10:23 PICC Line Care [RC] Q4H PICC Line Insert [RC] .ONCE 07/26/17 Dinner Carb-controlled Diet [DIET] 07/27/17 05:00 BMP - BASIC METABOLIC PANEL [CHEM] DAILYLAB Subjective - Subjective Patient Reports: Feeling Better, Other (BMs are less frequent. Pyridium was ordred for dysuria, and is helping.) Objective Vital Signs: Vital Signs - 24 hr 07/25/17 07/26/17 07/26/17 21:00 03:51 05:00 Temperature 37.3 C 37.1 C 98.2 C H Heart Rate [ 86 85 84 Monitoring electrodes] Respiratory 26 H 28 H 22 Rate Blood Pressure [Left Brachial artery] Blood Pressure 135/69 H 136/70 H 141/79 H [Right Radial artery] O2 Saturation 96 100 97 07/26/17 07/26/17 07/26/17 09:00 13:00 15:43 Temperature 36.5 C 36.5 C 36.4 C L Heart Rate [ 86 66 75 Monitoring electrodes] Respiratory 20 20 20 Rate Blood Pressure 147/77 H [Left Brachial artery] Blood Pressure 137/68 H 154/84 H [Right Radial artery] O2 Saturation 97 98 99 Oxygen O2 Source Room air I&O (Last 24 Hrs): Intake and Output Totals x24h 07/24/17 07/25/17 07/26/17 23:59 23:59 23:59 Intake Total 4253.750 2254.250 1206 Output Total 720 910 635 Balance 3533.750 1344.250 571 General: Alert, Oriented x3 HEENT: Mucous membr. moist/pink Neck: Supple Neuro: Oriented Times 3 Cardiovascular: Regular rate, No murmurs Respiratory: No respiratory distress Abdomen: Soft Extremities: No edema - Results Results: Laboratory Results WBC 14.0 x10^3/uL (4.8-10.8) H 07/25/17 05:25 RBC 4.24 10^6/uL (4.70-6.10) L 07/25/17 05:25 Hgb 12.5 g/dL (14.0-18.0) L 07/25/17 05:25 Hct 38.1 % (42.0-52.0) L 07/25/17 05:25 MCV 89.7 fL (80.0-94.0) 07/25/17 05:25 MCH 29.4 pg (27.0-31.0) 07/25/17 05:25 MCHC 32.7 g/dL (32.0-36.0) 07/25/17 05:25 RDW 14.8 % (12.0-15.0) 07/25/17 05:25 Plt Count 114 10^3/uL (130-450) L 07/25/17 05:25 MPV 8.0 fL (7.4-11.4) 07/25/17 05:25 Neut # 13.1 10^3/uL (1.5-6.6) H 07/25/17 05:25 Lymph # 0.3 10^3/uL (1.5-3.5) L 07/25/17 05:25 [place] # 0.5 10^3/uL (0.0-1.0) 07/25/17 05:25 Eos # 0.0 10^3/uL (0.0-0.7) 07/25/17 05:25 Baso # 0.0 10^3/uL (0.0-0.1) 07/25/17 05:25 Absolute Nucleated RBC 0.00 x10^3/uL 07/25/17 05:25 Nucleated RBC % 0.0 /100WBC 07/25/17 05:25 Sodium 135 mmol/L (135-145) 07/25/17 05:25 Potassium 4.1 mmol/L (3.5-5.0) 07/25/17 05:25 Chloride 109 mmol/L (101-111) 07/25/17 05:25 Carbon Dioxide 18 mmol/L (21-32) L 07/25/17 05:25 Anion Gap 8.0 (6-13) 07/25/17 05:25 BUN 25 mg/dL (6-20) H 07/25/17 05:25 Creatinine 1.8 mg/dL (0.6-1.2) H 07/25/17 05:25 Estimated GFR (MDRD) 37 (>89) L 07/25/17 05:25 Glucose 129 mg/dL (70-100) H 07/25/17 05:25 POC Whole Bld Glucose 130 mg/dL (70 - 100) H 07/26/17 11:54 Glycated Hemoglobin 6.5 % (4.6-6.2) H 07/24/17 04:21 Estim Average Glucose 140 (70-100) H 07/24/17 04:21 Lactic Acid < 0.3 mmol/L (0.5-2.2) L 07/24/17 06:58 Calcium 7.7 mg/dL (8.5-10.3) L 07/25/17 05:25 Phosphorus 2.7 mg/dL (2.5-4.6) 07/25/17 05:25 Magnesium 2.1 mg/dL (1.7-2.8) 07/25/17 05:25 Total Bilirubin 0.7 mg/dL (0.2-1.0) 07/24/17 04:21 AST 25 IU/L (10-42) 07/24/17 04:21 ALT 18 IU/L (10-60) 07/24/17 04:21 Alkaline Phosphatase 59 IU/L (42-121) 07/24/17 04:21 Troponin I < 0.04 ng/mL (<0.49) 07/24/17 04:21 Total Protein 5.7 g/dL (6.7-8.2) L 07/24/17 04:21 Albumin 3.4 g/dL (3.2-5.5) 07/24/17 04:21 Globulin 2.3 g/dL (2.1-4.2) 07/24/17 04:21 Albumin/Globulin Ratio 1.5 (1.0-2.2) 07/24/17 04:21 Lipase 21 U/L (22-51) L 07/24/17 04:21
[2017-07-26] MEDS ORDERED: SODIUM CHLORIDE FLUSH 0.9% 10 ML SYRINGE IVP PRN (20:28)
[2017-07-27] MEDS: PHENAZOPYRIDINE 100 MG TABLET PO PRN ×2 (04:19→17:48)
[2017-07-27] MEDS: HYDROcod/ACETAM 5/325 MG TABLET PO PRN ×4 (04:20→22:14)
[2017-07-27] MEDS: FAMOTIDINE 20 MG/50 ML 50 ML IV SCH ×2 (05:46→17:16)
[2017-07-27] MEDS: SODIUM CHLORIDE FLUSH 0.9% 10 ML SYRINGE IVP SCH ×3 (05:46→19:29)
[2017-07-27 06:23] LABS: CALCIUM 8.3 mg/dL (8.5-10.3); CREATININE 1.4 mg/dL (0.6-1.2); POTASSIUM 3.9 mmol/L (3.5-5.0)
[2017-07-27] MEDS: INSULIN ASPART 300 UNIT/3 ML PEN SUBQ SCH ×4 (08:46→19:28)
[2017-07-27] MEDS: ALLOPURINOL 100 MG TABLET PO SCH (08:58)
[2017-07-27] MEDS: buPROPion XL 150 MG TABLET PO SCH (08:59)
[2017-07-27] MEDS: ASPIRIN 325 MG TABLET PO SCH (08:59)
[2017-07-27] MEDS: TAMSULOSIN 0.4 MG CAPSULE PO SCH (09:00)
[2017-07-27] MEDS: ERTAPENEM 1 GM in SODIUM CHLORIDE 0.9% MINIBAG 100 ML IV SCH (09:00)
[2017-07-27] MEDS: HEPARIN 5,000 UNIT/ML VIAL SUBQ SCH ×2 (09:01→19:24)
[2017-07-27] MEDS: NS W/20 MEQ KCL 1,000 ML IV SCH ×2 (10:45→22:37)
--- NOTE | 2017-07-27 18:08 | PROVIDER PROGRESS NOTE ---
Assessment/Plan - Problem List (1) UTI (urinary tract infection) Qualifiers: Urinary tract infection type: acute pyelonephritis Qualified Code(s): N10 - Acute pyelonephritis Assessment/Plan: Continue present plan for PICC line iv antibiotics. (2) Bacteremia due to Escherichia coli Assessment/Plan: PICC line iv antibiotics til 08/03/17 planned. (3) BPH (benign prostatic hyperplasia) Assessment/Plan: Pt needs a Urologist after DCh Continue with current meds and plan. (4) Travelers' diarrhea Assessment/Plan: Since no bacterial cultures are positive, will add Lomotil. (6) Diabetes mellitus type 2, uncontrolled Qualifiers: Diabetes mellitus complication status: with kidney complications Diabetes mellitus bed bug exterminator insulin use: unspecified bed bug exterminator insulin use status Chronic kidney disease stage: unspecified stage (7) Sepsis Assessment/Plan: Continue diet and meds. - Current Meds Current Meds: Current Medications Generic Name Dose Route Start Last Admin Trade Name Freq PRN Reason Stop Dose Admin Acetaminophen 500 mg 07/24/17 18:23 07/25/17 00:57 Tylenol PO 500 mg Q4HR PRN Administration Pain or Fever > 38C (100.4F) Acetaminophen/Hydrocodone Bitart 1 tab 07/24/17 04:57 07/27/17 17:48 [place] 5/325 PO 1 tab Q4HR PRN Administration Pain 5 to 7 Allopurinol 300 mg 07/24/17 18:00 07/27/17 08:58 Zyloprim PO 300 mg DAILY JOEY Administration Aspirin 325 mg 07/25/17 09:00 07/27/17 08:59 Omega PO 325 mg DAILY JOEY Administration Bupropion HCl 300 mg 07/25/17 09:00 07/27/17 08:59 Wellbutrin Xl PO 300 mg DAILY JOEY Administration Heparin Sodium (Porcine) 5,000 unit 07/24/17 09:00 07/27/17 09:01 SUBQ 5,000 unit BID JOEY Administration Famotidine 50 mls @ 100 mls/hr 07/24/17 05:00 07/27/17 17:16 Pepcid 20 Mg/50 Ml IV 50 mls/hr Q12H JOEY Administration Potassium Chloride/Sodium Chloride 1,000 mls @ 80 mls/hr 07/25/17 08:13 07/27 10:45 Normal Saline 0.9% W/20 Meq Kcl IV 80 mls/hr .[id number] JOEY Administration Ertapenem 1 gm/ Sodium 100 mls @ 200 mls/hr 07/25/17 13:00 07/27/17 09:34 Chloride IV Infused DAILY JOEY Infusion Insulin Aspart 1 - 9 unit 07/24/17 08:00 07/27/17 17:18 Novolog SUBQ Not Given 0800,1200,1700,2100 [facility] Protocol Phenazopyridine HCl 100 mg 07/26/17 08:04 07/27/17 17:48 Pyridium PO 100 mg TID PRN Administration PAIN Sodium Chloride 10 ml 07/24/17 06:00 07/27/17 12:47 Normal Saline Flush 0.9% IVP 10 ml Q8HR JOEY Administration Sodium Chloride 20 ml 07/26/17 20:28 07/27/17 05:46 Normal Saline Flush 0.9% IVP 20 ml PRN PRN Administration After Blood Draw Tamsulosin HCl 0.8 mg 07/26/17 09:00 07/27/17 09:00 Flomax PO 0.8 mg DAILY JOEY Administration - Lab Result Fish Bone Diagrams: 07/25/17 05:25 07/27/17 05:55 - Additional Planning My Orders: My Active Orders 07/26/17 20:28 Sodium Chloride Flush 0.9% [Normal Saline Flush 0.9%] 20 ml IVP PRN PRN 07/27/17 17:47 Diphenoxylate/Atropine [Lomotil] 1 tab PO QID PRN 07/28/17 05:00 CBC - COMP BLD CT W/AUTO DIFF [HEME] DAILYLAB CMP [COMPREHENSIVE METABOLIC PANEL] [CHEM] DAILYLAB Subjective - Subjective Patient Reports: Feeling Better Nursing Reports: Other (He still has loose BMs and is requesting something for this.) Objective Vital Signs: Vital Signs - 24 hr 07/26/17 07/27/17 07/27/17 21:00 01:00 09:00 Temperature 36.5 C 36.4 C L 36.3 C L Heart Rate [ Brachial] Heart Rate [ 81 70 80 Monitoring electrodes] Respiratory 18 22 20 Rate Blood Pressure 151/71 H 129/68 [Left Brachial artery] Blood Pressure 142/69 H [Right Radial artery] O2 Saturation 99 96 97 07/27/17 07/27/17 13:04 15:27 Temperature 36.2 C L 36.4 C L Heart Rate [ 72 Brachial] Heart Rate [ 71 Monitoring electrodes] Respiratory 18 16 Rate Blood Pressure 149/70 H 117/70 [Left Brachial artery] Blood Pressure [Right Radial artery] O2 Saturation 98 98 Oxygen O2 Source Room air I&O (Last 24 Hrs): Intake and Output Totals x24h 07/25/17 07/26/17 07/27/17 23:59 23:59 23:59 Intake Total 2254.250 2244 1600 Output Total 910 635 300 Balance 4947.188 4877 1300 Neck: Supple Cardiovascular: Regular rate Respiratory: No respiratory distress Abdomen: Soft Extremities: No edema - Results Results: Laboratory Results WBC 14.0 x10^3/uL (4.8-10.8) H 07/25/17 05:25 RBC 4.24 10^6/uL (4.70-6.10) L 07/25/17 05:25 Hgb 12.5 g/dL (14.0-18.0) L 07/25/17 05:25 Hct 38.1 % (42.0-52.0) L 07/25/17 05:25 MCV 89.7 fL (80.0-94.0) 07/25/17 05:25 MCH 29.4 pg (27.0-31.0) 07/25/17 05:25 MCHC 32.7 g/dL (32.0-36.0) 07/25/17 05:25 RDW 14.8 % (12.0-15.0) 07/25/17 05:25 Plt Count 114 10^3/uL (130-450) L 07/25/17 05:25 MPV 8.0 fL (7.4-11.4) 07/25/17 05:25 Neut # 13.1 10^3/uL (1.5-6.6) H 07/25/17 05:25 Lymph # 0.3 10^3/uL (1.5-3.5) L 07/25/17 05:25 Petroleum # 0.5 10^3/uL (0.0-1.0) 07/25/17 05:25 Eos # 0.0 10^3/uL (0.0-0.7) 07/25/17 05:25 Baso # 0.0 10^3/uL (0.0-0.1) 07/25/17 05:25 Absolute Nucleated RBC 0.00 x10^3/uL 07/25/17 05:25 Nucleated RBC % 0.0 /100WBC 07/25/17 05:25 Sodium 137 mmol/L (135-145) 07/27/17 05:55 Potassium 3.9 mmol/L (3.5-5.0) 07/27/17 05:55 Chloride 107 mmol/L (101-111) 07/27/17 05:55 Carbon Dioxide 18 mmol/L (21-32) L 07/27/17 05:55 Anion Gap 12.0 (6-13) 07/27/17 05:55 BUN 19 mg/dL (6-20) 07/27/17 05:55 Creatinine 1.4 mg/dL (0.6-1.2) H 07/27/17 05:55 Estimated GFR (MDRD) 50 (>89) L 07/27/17 05:55 Glucose 113 mg/dL (70-100) H 07/27/17 05:55 POC Whole Bld Glucose 91 mg/dL (70 - 100) 07/27/17 16:31 Glycated Hemoglobin 6.5 % (4.6-6.2) H 07/24/17 04:21 Estim Average Glucose 140 (70-100) H 07/24/17 04:21 Lactic Acid < 0.3 mmol/L (0.5-2.2) L 07/24/17 06:58 Uric Acid 4.9 mg/dL (2.6-7.2) 07/27/17 05:55 Calcium 8.3 mg/dL (8.5-10.3) L 07/27/17 05:55 Phosphorus 2.7 mg/dL (2.5-4.6) 07/25/17 05:25 Magnesium 2.1 mg/dL (1.7-2.8) 07/25/17 05:25 Total Bilirubin 0.7 mg/dL (0.2-1.0) 07/24/17 04:21 AST 25 IU/L (10-42) 07/24/17 04:21 ALT 18 IU/L (10-60) 07/24/17 04:21 Alkaline Phosphatase 59 IU/L (42-121) 07/24/17 04:21 Troponin I < 0.04 ng/mL (<0.49) 07/24/17 04:21 Total Protein 5.7 g/dL (6.7-8.2) L 07/24/17 04:21 Albumin 3.4 g/dL (3.2-5.5) 07/24/17 04:21 Globulin 2.3 g/dL (2.1-4.2) 07/24/17 04:21 Albumin/Globulin Ratio 1.5 (1.0-2.2) 07/24/17 04:21 Lipase 21 U/L (22-51) L 07/24/17 04:21
[2017-07-27] MEDS: DIPHENOX/ATROPINE 2.5/0.025 MG TABLET PO PRN (18:34)
[2017-07-28] MEDS: PHENAZOPYRIDINE 100 MG TABLET PO PRN ×2 (03:07→09:39)
[2017-07-28] MEDS: HYDROcod/ACETAM 5/325 MG TABLET PO PRN ×2 (03:11→09:38)
[2017-07-28] MEDS: DIPHENOX/ATROPINE 2.5/0.025 MG TABLET PO PRN ×2 (03:14→10:58)
[2017-07-28] MEDS: FAMOTIDINE 20 MG/50 ML 50 ML IV SCH (04:48)
[2017-07-28 05:05] LABS: BASOPHILS % (AUTO) 0.3 %; EOSINOPHILS # (AUTO) 0.4 10^3/uL (0.0-0.7); EOSINOPHILS % (AUTO) 5.3 %; HGB - HEMOGLOBIN 12.8 g/dL (14.0-18.0); LYMPHOCYTES # (AUTO) 0.6 10^3/uL (1.5-3.5); LYMPHOCYTES % (AUTO) 8.7 %; MEAN CORPUSCULAR HGB CONC 34.6 g/dL (32.0-36.0); MEAN CORPUSCULAR VOLUME 86.5 fL (80.0-94.0); MEAN PLATELET VOLUME 8.1 fL (7.4-11.4); MONOCYTES # (AUTO) 0.7 10^3/uL (0.0-1.0); MONOCYTES % (AUTO) 10.1 %; NEUTROPHILS # (AUTO) 5.6 10^3/uL (1.5-6.6); NEUTROPHILS % (AUTO) 75.6 %; RED BLOOD COUNT 4.28 10^6/uL (4.70-6.10); RED CELL DISTRIBUTION WIDTH 14.6 % (12.0-15.0); UNCORRECTED WHITE BLOOD COUNT 7.4 x10^3/uL; WHITE BLOOD COUNT 7.4 x10^3/uL (4.8-10.8)
[2017-07-28 05:06] LABS: BILIRUBIN,TOTAL 0.9 mg/dL (0.2-1.0); CALCIUM 8.1 mg/dL (8.5-10.3); CREATININE 1.2 mg/dL (0.6-1.2); POTASSIUM 3.9 mmol/L (3.5-5.0); TOTAL PROTEIN 5.6 g/dL (6.7-8.2)
[2017-07-28 05:38] VITALS: BP 150/77
[2017-07-28] MEDS: SODIUM CHLORIDE FLUSH 0.9% 10 ML SYRINGE IVP SCH (06:41)
[2017-07-28] MEDS: INSULIN ASPART 300 UNIT/3 ML PEN SUBQ SCH ×2 (09:11→12:26)
[2017-07-28] MEDS: ALLOPURINOL 100 MG TABLET PO SCH (09:31)
[2017-07-28] MEDS: ERTAPENEM 1 GM in SODIUM CHLORIDE 0.9% MINIBAG 100 ML IV SCH (09:33)
[2017-07-28] MEDS: buPROPion XL 150 MG TABLET PO SCH (09:33)
[2017-07-28] MEDS: ASPIRIN 325 MG TABLET PO SCH (09:33)
[2017-07-28] MEDS: TAMSULOSIN 0.4 MG CAPSULE PO SCH (09:34)
[2017-07-28] MEDS: HEPARIN 5,000 UNIT/ML VIAL SUBQ SCH (11:21)
--- NOTE | 2017-07-28 11:36 | Discharge Plan ---
Discharge Plan Disposition: Home, Self Care Condition: Fair Prescriptions: Diphenoxylate HCl/Atropine [Diphenoxylate-Atrop 2.5-0.025] 1 each PO TID PRN # 30 tablet PRN Reason: Diarrhea Phenazopyridine [Pyridium] 100 mg PO TID PRN #30 tablet PRN Reason: Pain Diet: Diabetic Activity Restrictions: Activity as Tolerated Shower Restrictions: No Driving Restrictions: No Instruction Topics: Diarrhea, ED Diet Brat Expanded Inf Td, Diarrhea Ch, Probs Prostate Related Urinary Sx Additional Instructions or Follow Up instructions: See your Primary Care Provider for follow-up, in the next week. You need to see a Urologist for management also. Take the daily iv antibiotic through 08/03/17 No Smoking: If you smoke, Please STOP! Call for help.
--- NOTE | 2017-07-31 18:29 | DISCHARGE SUMMARY ---
"Discharge Summary Admit Date: 07/24/17 Discharge Date: 07/28/17 Discharging Provider: Dr Brenda Alarcon Code Status: Attempt Resuscitation Condition at Discharge: Fair Discharge Disposition: 01 Home, Self Care - DIAGNOSES Admission Diagnoses: 1) Septic shock 2) UTI 3) Prostatic Hypertrophy 4) Travelers's Diarrhea 5) DM 6) CAD 7) Dementia, mild - HPI History of Present Illness: 71 y/o WM presented from home, brought in by , after visit to this ER less than 1 day previously for UTI and sent home on Bactrim po. Now he was confused, tachycardic at 120 bpm, hypotensive with BP 92 systolic, complaining of nausea vomiting, and dysuria. Labs showed lactic acid level of 3.5. He remaine hyptensive after 3L of NS given in ER and was admitted to the ICU with diagnosis of Urosepsis. - CONSULTS | PROCEDURES Procedures: CVP placed for rapid fluid replacement. The patient pulled this out unintentionally on Day #3. The day prior to discharge, a PICC line was successfully placed in order to administer iv antibiotics after discharge. - HOSPITAL COURSE Hospital Course: 1) Septic shock - The patient received Levophed briefly. He was administred iv saline for nearly his entire course of stay. He had urine and blood cultures done and both grew ESBL Ecoli. Initially he was started empirically on Ceftriaxone iv, then changed to Ertapenem iv daily, based on his Ecoli culture' s sensitivities. It was planned that he receive a 14 day course, therefore he was discharged with a PICC line, to get home infusions daily, to be completed on 08/03/17. 2) UTI - The source of his bacteremia and sepsis was a UTI. The urine culture grew the same orgaism as his blood culture. The iv treatment is outlined in #1. Imaging studies were performed and showed pyelonephritis and significant prostatic hypertrophy. He required his Flomax and was started on Pyridium for dysuriaARF on CKD - His admission creatinine was 1.7 and was given a prescription for Pyridium at discharge. 3) Traveler's diarrhea - On Day #3 of hospitalization, he admitted to having loose BMs for 1-2 weeks, which had started during a trip to [place] and [place]. His stool was cultured and was negative for C.diff., Shigella and Salmonella. He was given Lomotil with some improvement and discharged on this. The diarrhea was felt to have contributed to the UTI. 4) ARF on CKD - His admission creatinine was 1.7 which only slowly improved during hospitalization with iv fluids continued until discharge. 5) DM - The patient was on a sliding scale of Insulin coverage. He was discharged on his pre-admission meds for DM treatment. 6) CAD history - The patient had no symptoms of angina or CHF during this admission. After his BP improved, all his meds were restarted. 7) Dementia, mild - He had minimal problems with memory during this stay. - ALLERGIES Allergies/Adverse Reactions: Allergies Allergy/AdvReac Type Severity Reaction Status Date / Time ciprofloxacin Allergy Unknown Verified 07/24/17 12:40 Penicillins Allergy Rash Verified 07/23/17 21:18 atorvastatin AdvReac MYALGIAS Verified 07/24/17 12:39 ramipril AdvReac COUGH Verified 07/24/17 12:40 - MEDICATIONS Home Medications: Ambulatory Orders Medication Instructions Recorded Confirmed Allopurinol 300 mg PO DAILY 07/24/17 07/24/17 Aspirin 325 mg PO DAILY 07/24/17 07/24/17 Atenolol 25 mg PO BID 07/24/17 07/24/17 Carboxymethylcellulose Sodium 1 drops EACHEYE BID 07/24/17 07/24/17 [Refresh Tears] Cholecalciferol (Vitamin D3) 2,000 unit PO DAILY 07/24/17 07/24/17 [Vitamin D3] Cyanocobalamin (Vitamin B-12) 1,000 mcg PO DAILY 07/24/17 07/24/17 [Vitamin B-12] Dicyclomine HCl 10 mg PO QID PRN 07/24/17 07/24/17 Fluoxetine HCl 20 mg PO DAILY 07/24/17 07/24/17 Fluticasone [Flonase] 2 spray XIOMARA DAILY 07/24/17 07/24/17 Furosemide 20 mg PO DAILY 07/24/17 07/24/17 HYDROcod/ACETAM 5/325 [[place] 5/325] 1 tab PO Q4H PRN 07/24/17 07/24/17 Liraglutide [Victoza 2-Moises] 1.8 mg SUBQ DAILY 07/24/17 07/24/17 Loratadine [Claritin] 10 mg PO DAILY 07/24/17 07/24/17 Nitroglycerin [Nitrostat] 0.4 mg SL Q5M PRN 07/24/17 07/24/17 Rosuvastatin Calcium [Crestor] 10 mg PO DAILY 07/24/17 07/24/17 Tamsulosin HCl [Flomax] 0.8 mg PO DAILY 07/24/17 07/24/17 Zolpidem [Ambien] 5 mg PO QPM 07/24/17 07/24/17 buPROPion [Wellbutrin Xl] 300 mg PO DAILY 07/24/17 07/24/17 metFORMIN [Glucophage] 500 mg PO BIDWM 07/24/17 07/24/17 Allopurinol [Zyloprim] 300 mg PO DAILY tablet 07/28/17 Diphenoxylate HCl/Atropine 1 each PO TID PRN #30 tablet 07/28/17 [Diphenoxylate-Atrop 2.5-0.025] Phenazopyridine [Pyridium] 100 mg PO TID PRN #30 tablet 07/28/17 Home Medications Other | Comments: iv Ertapenam daily via PICC line through 08/03/17 Pyridium tid prn Lomotil tid prn - PHYSICAL EXAM AT DISCHARGE General Appearance: positive: No acute distress ENT: positive: No signs of dehydration Neck: positive: No JVD Respiratory: positive: No respiratory distress Cardiovascular: positive: Regular rate & rhythm, No murmur Abdomen: positive: Non-tender Skin: positive: Color nml Extremities: positive: No pedal edema - LABS Result Diagrams: 07/28/17 04:41 07/28/17 04:41 Other Lab Results: All labs including cultures reviewed and reported above. - DIAGNOSTIC IMAGING Diagnostic Imaging Results: Final report reviewed - FOLLOW UP Follow Up: PCP follow-up and for referral to a Urologist, was advised. - TIME SPENT Time Spent in Discharge (Minutes): 45"
== END 2017-07-28 13:18 | disposition home or self-care (01) | DRG 871 ==
LOC: EDUNIT# → ED 03:47 → ICU 04:58 → MS3 07-26 15:20
PROVIDERS: ADMIT Family Medicine; ATTEND Internal Medicine
PROC: 02HV33Z Insertion of Infusion Device into Superior Vena Cava, Percutaneous Approach (ICD-10-PCS; principal; 2017-07-26)
DX: A41.9 Sepsis, unspecified organism (principal); N39.0 Urinary tract infection, site not specified; A41.51 Sepsis due to Escherichia coli [E. coli]; R65.21 Severe sepsis with septic shock; N10 Acute pyelonephritis; E87.2 Acidosis; E11.9 Type 2 diabetes mellitus without complications; I25.2 Old myocardial infarction; N17.9 Acute kidney failure, unspecified; I10 Essential (primary) hypertension; N40.0 Benign prostatic hyperplasia without lower urinary tract symptoms; I25.10 Atherosclerotic heart disease of native coronary artery without angina pectoris; F03.90 Unspecified dementia, unspecified severity, without behavioral disturbance, psychotic disturbance, mood disturbance, and anxiety; E11.22 Type 2 diabetes mellitus with diabetic chronic kidney disease; N18.9 Chronic kidney disease, unspecified; K52.9 Noninfective gastroenteritis and colitis, unspecified; E11.65 Type 2 diabetes mellitus with hyperglycemia; E78.00 Pure hypercholesterolemia, unspecified; G47.30 Sleep apnea, unspecified; M10.9 Gout, unspecified; Z16.12 Extended spectrum beta lactamase (ESBL) resistance; Z85.828 Personal history of other malignant neoplasm of skin; Z95.5 Presence of coronary angioplasty implant and graft; Z79.82 Long term (current) use of aspirin; Z79.899 Other long term (current) drug therapy; Z79.84 Long term (current) use of oral hypoglycemic drugs
CPT/HCPCS: 36415; 36556; 36569; 71010; 74176; 80048; 80053; 83036; 83605; 83690; 83735; 84100; 84484; 84550; 85025; 87040; 87045; 87046; 87150; 87493; 96361; 96365; 96375; 99284; 99291

== ENCOUNTER 2019-04-21 18:11 | Emergency (ER) | payer MEDICARE, OTHER ==
[2019-04-21 20:17] VITALS: BP 125/85
[2019-04-21] MEDS ORDERED: BUFFERED LIDOCAINE 10 ML SYRINGE SUBQ STA (20:35)
--- NOTE | 2019-04-21 20:36 | ED Physician Documentation ---
PD HPI LOWER EXT INJURY - Stated complaint Stated Complaint: LT LEG VS HEDGETRIMMER - Chief complaint Chief Complaint: Laceration - History obtained from History obtained from: Patient - History of Present Illness PD HPI LOW EXT INJURY LOCATION: Left, Upper leg Type of injury: Laceration Where injury occurred: Home Timing - onset: Enter time (1100), Today Timing - duration: Hours Timing - details: Abrupt onset, Still present Improved by: Rest, Immobilization Worsened by: Moving, Palpating Associated symptoms: No: Weakness, Numbness, Tingling, Swelling Contributing factors: No: Anticoagulated Similar symptoms before: Diagnosis (laceration) Recently seen: Not recently seen - Additional information Additional information: 73-year-old male was using a gas powered three knife trimmer somehow he has lacerated his distal thigh with this tremor and did not cut through his pants. He notices when he took off his pants today after coming in from work and is been able to control the bleeding with direct pressure. Review of Systems Constitutional: denies: Fever Respiratory: denies: Cough GI: denies: Vomiting Skin: reports: Laceration (s) PD PAST MEDICAL HISTORY - Past Medical History Past Medical History: Yes Cardiovascular: Hypertension, High cholesterol, Coronary artery disease, [place] Respiratory: Asthma, Sleep apnea, CPAP use Endocrine/Autoimmune: Type 2 diabetes GI: Chronic diarrhea, Chronic constipation, Other : Benign prostate hypertrophy, Retention HEENT: Glaucoma, Chronic hearing loss, Dental implants Psych: Depression Musculoskeletal: Fibromyalgia, Gout, Chronic back pain Derm: Other Other Past Medical History: Tdap was given last 2011. - Past Surgical History Past Surgical History: Yes General: Colonoscopy Cardiovascular: Coronary stent, Cardiac catheterization HEENT: Cataracts, Detached retina repair Derm: Skin cancer surgery - Present Medications Home Medications: Ambulatory Orders Medication Instructions Recorded Confirmed RX: Allopurinol 300 mg PO DAILY 07/24/17 07/24/17 RX: Aspirin 325 mg PO DAILY 07/24/17 07/24/17 RX: Atenolol 25 mg PO BID 07/24/17 07/24/17 RX: Carboxymethylcellulose Sodium 1 drops EACHEYE BID 07/24/17 07/24/17 [Refresh Tears] RX: Cholecalciferol (Vitamin D3) 2,000 unit PO DAILY 07/24/17 07/24/17 [Vitamin D3] RX: Cyanocobalamin (Vitamin B-12) 1,000 mcg PO DAILY 07/24/17 07/24/17 [Vitamin B-12] RX: Dicyclomine HCl 10 mg PO QID PRN 07/24/17 07/24/17 RX: Fluoxetine HCl 20 mg PO DAILY 07/24/17 07/24/17 RX: Fluticasone [Flonase] 2 spray XIOMARA DAILY 07/24/17 07/24/17 RX: Furosemide 20 mg PO DAILY 07/24/17 07/24/17 RX: HYDROcod/ACETAM 5/325 [[place] 1 tab PO Q4H PRN 07/24/17 07/24/17 5/325] RX: Liraglutide [Victoza 2-Moises] 1.8 mg SUBQ DAILY 07/24/17 07/24/17 RX: Loratadine [Claritin] 10 mg PO DAILY 07/24/17 07/24/17 RX: Nitroglycerin [Nitrostat] 0.4 mg SL Q5M PRN 07/24/17 07/24/17 RX: Rosuvastatin Calcium [Crestor] 10 mg PO DAILY 07/24/17 07/24/17 RX: Tamsulosin HCl [Flomax] 0.8 mg PO DAILY 07/24/17 07/24/17 RX: Zolpidem [Ambien] 5 mg PO QPM 07/24/17 07/24/17 RX: buPROPion [Wellbutrin Xl] 300 mg PO DAILY 07/24/17 07/24/17 RX: metFORMIN [Glucophage] 500 mg PO BIDWM 07/24/17 07/24/17 Diphenoxylate HCl/Atropine 1 each PO TID PRN #30 tablet 07/28/17 [Diphenoxylate-Atrop 2.5-0.025] RX: Allopurinol [Zyloprim] 300 mg PO DAILY tablet 07/28/17 RX: Phenazopyridine [Pyridium] 100 mg PO TID PRN #30 tablet 07/28/17 - Allergies Allergies/Adverse Reactions: Allergies Allergy/AdvReac Type Severity Reaction Status Date / Time ciprofloxacin Allergy Unknown Verified 04/21/19 20:21 Penicillins Allergy Rash Verified 04/21/19 20:21 atorvastatin AdvReac MYALGIAS Verified 04/21/19 20:21 ramipril AdvReac COUGH Verified 04/21/19 20:21 - Social History Does the pt smoke?: No Smoking Status: Never smoker Does the pt drink ETOH?: Yes Does the pt have substance abuse?: No - Immunizations Immunizations are current?: Yes - POLST Patient has POLST: No POLST Status: Full Code PD ED PE NORMAL - Vitals Vital signs reviewed: Yes (hypertensive mild) - General General: Alert and oriented X 3, No acute distress, Well developed/nourished - HEENT HEENT: Atraumatic, PERRL, EOMI - Respiratory Respiratory: No respiratory distress - Derm Derm: Normal color, Warm and dry, No rash - Extremities Extremities: No deformity, No edema, Other (over the distal left thigh is an abrasion that looks like it is a V shaped flap laceration. This was numnbed and cleaned and this is not a flap but a V shaped abrasion. ) - Neuro Neuro: Alert and oriented X 3, salary manager 2-12 intact, No motor deficit, No sensory deficit, Normal speech Eye Opening: Spontaneous Motor: Obeys Commands Verbal: Oriented GCS Score: 15 - Psych Psych: Normal mood, Normal affect Results - Vitals Vitals: Vital Signs - 24 hr 04/21/19 04/21/19 18:26 20:16 Temperature 36 C L 36.0 C L Heart Rate 74 70 Respiratory 18 16 Rate Blood Pressure 134/78 H 125/85 H O2 Saturation 99 97 Oxygen O2 Source Room air Procedures - Laceration (location) left thigh Length in cm: 3 Wound type: Flap, Superficial, Clean Neurovascular status: Sensory intact, Motor intact, Vascular intact Anesthesia: Lidocaine 1%, With bicarb Wound Preparation: Hibiclens, Irrigated copiously NS, Wound explored, To the base Skin layer closure: Dermabond Other: Patient tolerated well, No complications, Neurovascular intact, Dressing applied, Tetanus UTD Complexity: Other (not a laceration--- deep abrasion) PD MEDICAL DECISION MAKING - ED course Complexity details: reviewed results, re-evaluated patient, considered differential, d/w patient ED course: 73-year-old male wearing a pair of pants has what appears to be a flap laceration to his left distal thigh and when this is examined closely after anesthetic it is apparent this is a V-shaped abrasion and not a flap laceration. It is cleansed and covered with Dermabond. Departure - Departure Disposition: Home, Self Care Clinical Impression: Abrasion Condition: Stable Instructions: ED Abrasion Follow-Up: DIONNE GARCIA [Primary Care Provider] - Discharge Date/Time: 04/21/19 21:05
== END 2019-04-21 21:05 | disposition home or self-care (01) ==
LOC: ED 18:11
DX: S70.312A Abrasion, left thigh, initial encounter (principal); W29.3XXA Contact with powered garden and outdoor hand tools and machinery, initial encounter; Y93.H2 Activity, gardening and landscaping; Y92.007 Garden or yard of unspecified non-institutional (private) residence as the place of occurrence of the external cause; E11.9 Type 2 diabetes mellitus without complications; Z79.84 Long term (current) use of oral hypoglycemic drugs; I10 Essential (primary) hypertension; Z79.82 Long term (current) use of aspirin
CPT/HCPCS: 99281; 99282